=== PATIENT | female | born 2000 | race Caucasian/White ===

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

== ENCOUNTER 2021-04-10 14:01 | Emergency (ER) | payer OTHER, SELFPAY ==
--- NOTE | ~2021-04-10 | XR_ITS ---
EXAMINATION: XR abdomen/kub 1V EXAM DATE: 04/10/2021 14:44 INDICATION: Left-sided low abdominal pain, diarrhea. TECHNIQUE: Frontal projection(s) of the abdomen for interpretation. There is no prior study for santos man. Correlation was made with CT abdomen 12/16/2020. FINDINGS: There is expected amount of colonic stool and gas. No small bowel dilation, nonobstructiv e bowel gas pattern. There are no suspicious calcifications identified. Upper abdomen incompletely imaged but patient may have splenomegaly. The bones are unremarkable. IMPRESSION: Possible splenomegaly. Reviewed, dictated and finalized at location A. N [employer] IMPRESSION: Possible splenomegaly.
--- NOTE | 2021-04-10 14:18 | ED.GENADULT ---
HPI - General Adult General Chief complaint: Upper Respiratory Infection Stated complaint: lower abdominal pain and throat pain Time Seen by Provider: 04/10/21 14:18 Source: patient Mode of arrival: ambulatory Limitations: no limitations History of Present Illness HPI narrative: 21-year-old female presenting for complaint of left lower quadrant abdominal pain for 4 days. Endorses constipation, passing flatus. Denies nausea, vomiting, diarrhea, fever or chills. She also endorses 1 day history of throbbing in her throat. Denies difficulty or pain with swallowing, decreased appetite, early satiety, referred pain to shoulder/chest, hematochezia or melena. LBM today after taking stool softener. Endorses recent Hx covid and mono 12/2020. States she was scheduled for CT abdomen last week and labs for further evaluation, but appt was canceled. Related Data Home Medications Medication Instructions Recorded Confirmed No Home Medications 04/10/21 04/10/21 Allergies Allergy/AdvReac Type Severity Reaction Status Date / Time No Known Allergies Allergy Verified 04/10/21 14:12 Review of Systems Review of Systems: CONSTITUTIONAL: Denies body aches, fever, chills, or sweats. EYES: Denies visual changes, redness, or discharge. ENT: Denies rhinorrhea, congestion, or otalgia. CARDIOVASCULAR: Denies chest pain, palpitations, or edema. RESPIRATORY: Denies cough or dyspnea. GASTROINTESTINAL: Endorses abdominal pain Denies nausea, vomiting, diarrhea, hematochezia, melena, hematemesis GENITOURINARY: Denies dysuria or hematuria. SKIN: Denies rash, itching, or wounds. MUSCULOSKELETAL: Denies back pain, joint pain, or myalgia. NEUROLOGIC: Denies headache, numbness, tingling, or weakness. PSYCH: Denies depression or anxiety. All systems reviewed & are unremarkable except as noted in HPI and below PMFSH Surgical History Surgical History S/P tonsillectomy [place] teeth removed Family History Family History Father Hypertension Patient's father is in good health Cerebrovascular accident Mother Patient's mother is in good health Asthma Sibling Patient's sister is in good health Anxiety Depression Grandparent Heart problem Cerebrovascular accident Social History Social History Smoking status: Never smoker Second hand tobacco smoke exposure: No Alcohol intake: never Comments At time of signature, I have reviewed and agree with nursing past medical, surgical, social and family history unless otherwise noted. Please see nursing chart for further information. There is no relevant family history pertinent to the presenting complaint Exam Narrative: GENERAL: Well-appearing, well-nourished, and in no acute distress. HEAD: Normocephalic, atraumatic. EYES: EOMI. No redness or drainage. Conjunctivae normal. ENT: Mucous membranes pink and moist. No rhinorrhea. TMs normal bilaterally. Throat normal. Uvula midline. NECK: Normal AROM. Supple. No lymphadenopathy. CHEST: No respiratory distress. Clear to auscultation. HEART: Regular rate and rhythm. No murmur appreciated. Normal peripheral pulses. ABDOMEN: Tender abdomen: LLQ and LUQ; No guarding, rebound tenderness, or asymmetry; abd soft, nondistended, normal active bowel sounds. MUSCULOSKELETAL: No bony tenderness. EXTREMITIES: Normal range of motion. No edema. SKIN: Warm, dry, no rash. Capillary refill normal. Normal skin turgor. NEURO: No focal deficits. Alert and oriented x3. Gait steady. PSYCH: Normal affect. No signs of depression or anxiety. Course Course Emergency Course: strep and flu neg KUB reviewed with pt We discussed at length the need to fu with PCP and have the CT abd/pelvis as originally scheduled; advised to go to ER for worsening sx. v/u. Patient is aware of diagnosis, unders
[2021-04-10 14:26] VITALS: BP 136/82; PULSE 88; RESP 16; TEMP 37.3; O2SAT 100
== END 2021-04-10 15:09 | disposition home or self-care (01) ==
PROVIDERS: Emergency Provider Nurse Practitioner Family; PCP Internal Medicine
DX: R10.32 Left lower quadrant pain (principal)
CPT/HCPCS: 74018; 81003; 87081; 87086; 87804; 87880; 99213; G0463

== ENCOUNTER 2021-04-12 20:43 | Emergency (ER) | payer OTHER, SELFPAY ==
--- NOTE | ~2021-04-12 | CT_ITS ---
EXAMINATION: CT abdomen pelvis w con DATE: 04/12/2021 22:55 INDICATION: Right lower quadrant abdominal pain. Nausea. TECHNIQUE: Computed tomography (CT) of the abdomen and pelvis was performed with 100 mL Omnipaque 350 intravenous contrast. Automated exposure control and iterative reconstruction technique were employe d. The dose-length product was 330.89 mGy-cm. COMPARISON: CT abdomen and pelvis 12/16/2020 FINDINGS: The visualized portions of lung bases are clear without pneumonia or pleural effusion. The heart size is normal. No pericardial effusion. There is mild splenomegaly. The liver, gallbladder, pa ncreas, adrenal glands, and kidneys are normal. Stool distends the rectum. The appendix is normal. Th ere are no pathologically enlarged lymph nodes. There is no free intraperitoneal fluid. The bones are unremarkable. IMPRESSION: 1. Stool distends the rectum. 2. Mild splenomegaly. Reviewed, dictated and finalized at location A. [employer]
[2021-04-12 20:46] VITALS: BP 144/72; PULSE 88; RESP 17; TEMP 36.7; O2SAT 100
--- NOTE | 2021-04-12 22:17 | ED.ABDPAIN ---
HPI - Abdominal Pain General Chief Complaint: Abdominal Pain Stated Complaint: abdominal pain Time Seen by Provider: 04/12/21 21:58 Source: patient and family Mode of arrival: ambulatory Limitations: no limitations History of Present Illness HPI narrative: 21 years old white female presents with lower abdominal pain started 5 to 6 days ago, mainly on the right side. Associated with nausea. Patient denies aggravating or relieving factors. Patient is fully vaccinated for COVID-19, last menstrual cycle 1 week ago, patient denies any fever, chills, vomiting, radiation of pain or urinary symptoms. Patient also denies any vaginal bleeding or discharge. Related Data Home Medications Medication Instructions Recorded Confirmed etonogestrel [Nexplanon] SUBDERMAL 04/12/21 Allergies Allergy/AdvReac Type Severity Reaction Status Date / Time No Known Allergies Allergy Verified 04/12/21 22:33 Review of Systems Review of Systems: CONSTITUTIONAL: Denies fever, chills, or sweats. EYES: Denies visual changes, redness, or discharge. ENT: Denies rhinorrhea, congestion, sore throat, or otalgia. CARDIOVASCULAR: Denies chest pain, palpitations, or edema. RESPIRATORY: Denies cough or dyspnea. GASTROINTESTINAL: Denies abdominal pain, nausea, vomiting, or diarrhea. GENITOURINARY: Denies dysuria or hematuria. SKIN: Denies rash or itching. MUSCULOSKELETAL: Denies back pain, joint pain, or myalgia. NEUROLOGIC: Denies headache, numbness, or weakness. PSYCHIATRIC: Denies anxiety or depression. PMFSH Surgical History Surgical History S/P tonsillectomy [place] teeth removed Family History Family History Father Hypertension Patient's father is in good health Cerebrovascular accident Mother Patient's mother is in good health Asthma Sibling Patient's sister is in good health Anxiety Depression Grandparent Heart problem Cerebrovascular accident Social History Social History Smoking status: Never smoker Second hand tobacco smoke exposure: No Alcohol intake: never Exam Narrative: General appearance: Well-developed, well-nourished Skin: Normal color Head: Normocephalic, nontraumatic Eyes: Clear conjunctiva ENT: Oropharynx normal, ears normal, nose normal Neck: Supple, nontender Chest and respiratory: Airway patent, no respiratory distress, no accessory muscle use Heart: Regular rate/rhythm Abdomen: Soft, mild to moderate tenderness right lower quadrant, no guarding or rebound, no organomegaly, quiet bowel sounds Vascular: Normal peripheral pulses, normal capillary refill. 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 Differential diagnosis as below Differential Diagnosis Differential diagnosis: Likely acute appendicitis, calculus of kidney, constipation, diverticulitis and other (Urinary tract infect
[2021-04-12 22:27] LABS: Basophils Absolute Auto 0.1 K/mm3 (0.0-0.1); Basophils Percent Auto 0.8 % (0.2-1.2); Eosinophils Absolute Auto 0.1 K/mm3 (0-0.3); Eosinophils Percent Auto 1.7 % (0-4.4); Hematocrit 38.3 % (37.0-47.0); Hemoglobin 12.7 g/dL (12.0-15.0); Immature Granulocyte Absolute 0.01 K/mm3 (0.00-0.031); Immature Granulocyte Percent A 0.2 % (0-0.5); Lymphocytes Absolute Auto 2.45 K/mm3 (0.9-3.2); Lymphocytes Percent Auto 41.5 % (18.3-44.2); Mean Corpuscular HGB Conc 33.2 g/dl (32-36); Mean Corpuscular Hemoglobin 30.2 pg (26-34); Mean Corpuscular Volume 91.2 fl (80-100); Mean Platelet Volume 10.1 fl (7.4-10.4); Monocytes Absolute Auto 0.5 K/mm3 (0.1-0.6); Monocytes Percent Auto 8.3 % (2.6-8.5); Neutrophils Absolute Auto 2.8 K/mm3 (1.3-6.7); Neutrophils Percent Auto 47.5 % (45.5-73.1); Platelet Count Result 194 k/mm3 (150-375); Red Cell Distribution Width 13.5 % (11.5-14.5); White Blood Count 5.9 K/mm3 (4.5-10.0)
[2021-04-12 22:34] LABS: Add Urine Microscopic? YES; Amorphous Sediment Urine Few; Appearance Urine Turbid (Clear); Bacteria Urine 1+ /hpf; Bilirubin Urine Negative (Negative); Blood Urine Negative (Negative); Color Urine Yellow (Yellow); Glucose Urine UA Negative (Negative); Ketones Urine Negative (Negative); Leukocyte Esterase Ur Negative LEU/UL (Negative); Nitrate Urine Negative (Negative); Protein Urine 1+ mg/dL (Negative); Squamous Epithelial Cell Urine Moderate /hpf (Few); Urobilinogen Urine Negative mg/dL (<2.0); WBC Clumps Urine Present /HPF; WBC Urine 0-3 /hpf
[2021-04-12 22:36] LABS: Alanine Aminotransferase 13 U/L (4-35); Albumin Level 4.2 g/dL (3.5-5.1); Alkaline Phosphatase 65 U/L (38-126); Anion Gap 2 mmol/L (8-16); Aspartate Amino Transferase 23 U/L (14-36); Bilirubin,Total 0.4 mg/dL (0.2-1.3); Blood Urea Nitrogen 18 mg/dL (7-17); Carbon Dioxide 26 mmol/L (22-30); Chloride 108 mmol/L (98-107); Estimated CRCL calculation 103 ml/min; Estimated Glomerular Filt Rate > 60; Glucose 97 mg/dL (65-110); Lipase 73 U/L (23-300); Potassium 4.4 mmol/L (3.4-5.0); Sodium 136 mmol/L (137-145); Specific Grav Ur 1.034 (1.001-1.035)
[2021-04-12] MEDS: MORPHINE SULFATE (*CRX) 4 MG/ML INJ IV PUSH (22:40)
[2021-04-12] MEDS: SODIUM CHLORIDE 0.9% IV 1,000 ML 999 ML IV CONT (22:40)
[2021-04-12] MEDS: ONDANSETRON INJ 4 MG/2 ML VIAL IV PUSH (22:40)
[2021-04-13 00:14] VITALS: PULSE 81; RESP 20; O2SAT 97
[2021-04-13 01:00] VITALS: BP 121/73; PULSE 80; RESP 16; O2SAT 99
== END 2021-04-13 01:00 | disposition home or self-care (01) ==
PROVIDERS: Emergency Medicine; Emergency Provider Emergency Medicine; PCP Internal Medicine
DX: N39.0 Urinary tract infection, site not specified (principal)
CPT/HCPCS: 36415; 74177; 80053; 81001; 81025; 83690; 85025; 96361; 96374; 96375; 99284; J2270; J2405; J7030; Q9967

== ENCOUNTER 2022-01-14 11:27 | Emergency (ER) | payer OTHER, SELFPAY ==
[2022-01-14 11:42] VITALS: BP 124/89; PULSE 83; RESP 16; TEMP 37.3; O2SAT 100
--- NOTE | 2022-01-14 12:22 | ED.URI ---
HPI - URI/Sore Throat General Chief Complaint: Upper Respiratory Infection Stated Complaint: cough, abdominal pain, ear pressure, congestion Time Seen by Provider: 01/14/22 12:14 Source: patient Mode of arrival: ambulatory Limitations: no limitations History of Present Illness HPI Narrative: patient presents today complaining of a 4 day history of cough, ear pain, congestion, postnasal drip. Denies sore throat or fever. She has been taking Zyrtec and Mucinex with some relief. Denies any known sick contacts. She has not received a flu vaccine this season. Related Data Home Medications Medication Instructions Recorded Confirmed etonogestrel 68 mg subdermal subdermal 04/12/21 04/21/21 implant (Nexplanon) spironolactone 100 mg tablet mg 01/14/22 Allergies Allergy/AdvReac Type Severity Reaction Status Date / Time No Known Allergies Allergy Verified 01/14/22 11:41 Review of Systems Review of Systems: CONSTITUTIONAL: Denies body aches, fever, chills, or sweats. EYES: Denies visual changes, redness, or discharge. ENT: Denies rhinorrhea, sore throat. + Ear pain, congestion, postnasal drip CARDIOVASCULAR: Denies chest pain, palpitations, or edema. RESPIRATORY: Denies dyspnea.+ cough GASTROINTESTINAL: Denies abdominal pain, nausea, vomiting, or diarrhea. GENITOURINARY: Denies dysuria or hematuria. SKIN: Denies rash, itching, or wounds. MUSCULOSKELETAL: Denies back pain, joint pain, or myalgia. NEUROLOGIC: Denies headache, numbness, tingling, or weakness. PSYCH: Denies depression or anxiety. [facility] Surgical History Surgical History S/P tonsillectomy [place] teeth removed Family History Family History Father Hypertension Patient's father is in good health Cerebrovascular accident Mother Patient's mother is in good health Asthma Sibling Patient's sister is in good health Anxiety Depression Grandparent Heart problem Cerebrovascular accident Social History Social History Smoking status: Never smoker Second hand tobacco smoke exposure: No Alcohol intake: never Comments At time of signature, I have reviewed and agree with nursing past medical, surgical, social and family history unless otherwise noted. Please see nursing chart for further information. There is no relevant family history pertinent to the presenting complaint Exam Narrative: GENERAL: mildly ill-appearing, well-nourished, and in no acute distress. HEAD: Normocephalic, atraumatic. EYES: EOMI. No redness or drainage. Conjunctivae normal. ENT: Mucous membranes pink and moist. Nares congested.. No rhinorrhea. TMs normal bilaterally. Throat Mildly erythematous without edema or exudate. Uvula midline. NECK: Normal AROM. Supple. No lymphadenopathy. CHEST: No respiratory distress. Clear to auscultation. HEART: Regular rate and rhythm. No murmur appreciated. Normal peripheral pulses. EXTREMITIES: Normal range of motion. No edema. SKIN: Warm, dry, no rash. Capillary refill normal. Normal skin turgor. NEURO: No focal deficits. Alert and oriented x3. Gait steady. PSYCH: Normal affect. No signs of depression or anxiety. Course Course Level of Care: Express Care Visit Vital Signs Vital signs: Vital Signs Temperature 99.1 F 01/14/22 11:42 Pulse Rate 83 01/14/22 11:42 Respiratory Rate 16 01/14/22 11:42 Blood Pressure 124/89 01/14/22 11:42 Pulse Oximetry 100 01/14/22 11:42 Temperature 99.1 F 01/14/22 11:42 Pulse Rate 83 01/14/22 11:42 Respiratory Rate 16 01/14/22 11:42 Blood Pressure 124/89 01/14/22 11:42 Pulse Oximetry 100 01/14/22 11:42 Reviewed. Pt has been instructed to follow up with her PCP regarding her elevated blood pressure today. MDM - URI/Sore Throat Differential Diagnosis Diff
== END 2022-01-14 12:33 | disposition home or self-care (01) ==
PROVIDERS: Emergency Provider Nurse Practitioner; PCP Internal Medicine
DX: J10.1 Influenza due to other identified influenza virus with other respiratory manifestations (principal); Z20.822 Contact with and (suspected) exposure to COVID-19; Z86.16 Personal history of COVID-19
CPT/HCPCS: 87426; 87804; 99213; C9803; G0463

== ENCOUNTER 2023-06-06 08:16 | Emergency (ER) | payer OTHER, SELFPAY ==
[2023-06-06 08:21] VITALS: BP 113/69; PULSE 77; RESP 16; TEMP 36.9; O2SAT 99
--- NOTE | 2023-06-06 08:38 | ED.GENADULT ---
HPI - General Adult General Chief complaint: Upper Respiratory Infection Stated complaint: Sore Throat/Headache Source: patient, RN notes reviewed and old records reviewed Mode of arrival: ambulatory Limitations: no limitations History of Present Illness HPI narrative: 23-year-old female presents to [facility] with complaint of sore throat that started yesterday. Patient states hurts to swallow. Patient also states today has sinus congestion. Patient denies cough for fever. Related Data Home Medications Medication Instructions Recorded Confirmed etonogestrel 68 mg subdermal 1 implant subdermal USEASDIRECTD 04/12/21 06/06/23 implant (Nexplanon) tretinoin 0.05 % topical cream 1 applic topical DAILY 06/06/23 06/06/23 Allergies Allergy/AdvReac Type Severity Reaction Status Date / Time No Known Allergies Allergy Verified 06/06/23 08:22 Review of Systems Constitutional: Constitutional: Reports no additional constitutional complaints, Denies body ache(s), Denies chills, Denies fatigue, Denies fever(s) and Denies headache(s) Eyes: Eyes: Reports no additional eye complaints and Denies blurry vision ENT: Reports system reviewed and no additional complaints, except as documented, Denies vertigo, Denies dizziness, Denies ear discharge, Denies otalgia, Denies facial pain, Denies headache(s), Reports nasal congestion, Denies nasal discharge, Reports odynophagia, Denies sinus pain, Denies sinus pressure and Reports sore throat Cardiovascular: Cardiovascular: Reports no additional cardiovascular complaints, Denies chest pain, Denies chest pain at rest, Denies rapid heart rate and Denies dyspnea Respiratory: Respiratory: Reports no additional respiratory complaints, Denies chest congestion, Denies cough, Denies pain on inspiration, Denies pain with cough and Denies dyspnea Gastrointestinal: Gastrointestinal: Denies abdominal pain, Denies diarrhea, Denies nausea and Denies vomiting Integumentary/Breasts: Skin/Breast: Denies rash Neurologic: Reports system reviewed and no additional complaints, except as documented, Denies vertigo, Denies dizziness and Denies headache(s) Endocrine: Endocrine: Denies fatigue PMFSH Surgical History Surgical History S/P tonsillectomy [place] teeth removed Family History Family History Father Hypertension Patient's father is in good health Cerebrovascular accident Mother Patient's mother is in good health Asthma Sibling Patient's sister is in good health Anxiety Depression Grandparent Heart problem Cerebrovascular accident Social History Social History Smoking status: Never smoker Second hand tobacco smoke exposure: No Alcohol intake: never Do You Feel Safe in your Home?: Yes Lack of Transportation: No Lack of Food: Never True Current Housing: I Have Housing Concerned About Future Housing: No Difficulty Paying Gas/Electric Bills: No Difficulty Paying for Meds: No Currently Unemployed: No Education: High School Diploma/GED Difficulty w/ Childcare or Family Care: No Comments At the time of my signature, I reviewed and agree with the nursing past medical, surgical, social, and family history. There is no relevant family history pertinent to the patient complaint. Exam Const: General: cooperative, healthy appearing, no acute distress and well nourished Nutritional Appearance: well nourished Orientation/consciousness: patient oriented x3 Limitations: no limitations HENMT: Head: normal to inspection and normocephalic Ears: external ears normal, TM's normal bilaterally, EAC's normal and mastoids normal Face/Nose/Sinus: Normal nasal mucous membranes and turbinates present and normal facial exam Face and sinus: normal facial exam Mouth: Yes Normal oral and palatal mucosa present, Ye
== END 2023-06-06 08:59 | disposition home or self-care (01) ==
PROVIDERS: Emergency Provider Registered Nurse; PCP Clinical Nurse Specialist
DX: J02.9 Acute pharyngitis, unspecified (principal); Z20.822 Contact with and (suspected) exposure to COVID-19
CPT/HCPCS: 87081; 87426; 87804; 87880; 99213; G0463

== ENCOUNTER 2023-07-25 14:04 | Outpatient (CLI) | payer OTHER, SELFPAY ==
[2023-07-25 14:42] LABS: D Dimer 0.83 ug/mL (<0.48)
[2023-07-25 15:00] LABS: Erythrocyte Sedimentation Rate 10 mm/hr (0-20)
== END 2023-07-25 14:05 | disposition home or self-care (01) ==
LOC: ANHLAB 14:06
PROVIDERS: PCP Clinical Nurse Specialist; Visit Provider Internal Medicine
DX: F41.9 Anxiety disorder, unspecified (principal); R07.89 Other chest pain
CPT/HCPCS: 36415; 84443; 85380; 85652

== ENCOUNTER 2023-07-25 16:13 | Outpatient (CLI) | payer OTHER, SELFPAY ==
--- NOTE | ~2023-07-25 | CT_ITS ---
EXAMINATION: CTA chest PE protocol DATE: 07/25/2023 17:03 INDICATION: POS D dimer and chest discomfort TECHNIQUE: Computed tomography angiography (CTA) of the chest was performed with 100 mL Omnipaque-350 intravenous contrast timed to evaluate the pulmonary arteries. Coronal maximum intensity projection 3D-reconstructions were created by the technologist. The dose-length product (DLP) was 191.29 mGy-cm. Automated exposure control and iterative reconstruction technique were employed. COMPARISON: X-ray chest 12/16/2020, report only. FINDINGS: Lung parenchyma and airways: Clear. Pleura: Unremarkable. Thoracic inlet, axillae and chest wall: Unremarkable. Thoracic aorta: No significant dilation. No dissection. Mediastinum: Normal. Heart and pericardium: Normal. Coronary artery calcifications: Absent. Upper abdomen: No significant finding. Bones: No acute osseous finding. Pulmonary arteries: Study quality: Adequate. No pulmonary emboli detected. IMPRESSION: No CT evidence of acute pulmonary embolus. No acute process detected in the chest. Reviewed, dictated and finalized at location K.
[2023-07-25 16:52] LABS: Estimated Glomerular Filt Rate > 60
== END 2023-07-25 16:14 | disposition home or self-care (01) ==
LOC: ANHIMG 16:14
PROVIDERS: PCP Clinical Nurse Specialist; Visit Provider Internal Medicine
DX: R07.89 Other chest pain (principal); R79.89 Other specified abnormal findings of blood chemistry
CPT/HCPCS: 71275; Q9967

== ENCOUNTER 2024-06-30 15:35 | Emergency (ER) | payer OTHER, SELFPAY ==
--- NOTE | ~2024-06-30 | XR_ITS ---
XR foot RT min 3V Ordering provider: PETER Crane History: . pain xyest after exercise. Prox lateral . Comparison: None. FINDINGS: BONES: No acute fracture or dislocation. JOINT SPACES: Normal. No tarsal coalition. SOFT TISSUES: Normal. IMPRESSION: No acute osseous abnormality of the right foot. Reviewed, dictated and finalized at location A.
[2024-06-30 15:45] VITALS: BP 150/89; PULSE 95; RESP 16; TEMP 36.8; O2SAT 100
--- NOTE | 2024-06-30 16:28 | ED_ITS ---
HPI - Extremity Injury (Lower) General Chief Complaint: Extremity Injury, Lower Stated Complaint: R FOOT PAIN Time Seen by Provider: 06/30/24 15:48 Source: patient and RN notes reviewed Mode of arrival: ambulatory Limitations: no limitations History of Present Illness HPI Narrative: Patient presents today complaining of pain to her right lateral foot since yesterday after walking 2.5 miles [address] a walking trail. States she was not walking over any rough terrain. She is active, so walking this distance is not new for her. She did notice some popping in her foot with walking. Denies numbness or tingling of her toes. Pain significantly increases with weight- bearing. At rest she describes the pain as a dull ache, but increases to 7/10 with weight-bearing. She has tried no interventions prior to arrival. Related Data Home Medications ?Medication ?Instructions ?Recorded ?Confirmed ?Last Taken ?Type etonogestrel 68 mg subdermal 1 implant subdermal USEASDIRECTD 04/12/21 06/30/24 Unknown History implant (Nexplanon) tretinoin 0.05 % topical cream 1 applic topical DAILY 06/06/23 06/30/24 Unknown History minocycline 4 % topical foam 1 applic topical DAILY 07/25/23 06/30/24 Unknown History (Amzeeq) Allergies Allergy/AdvReac Type Severity Reaction Status Date / Time No Known Allergies Allergy Verified 06/30/24 15:45 Review of Systems Review of Systems: CONSTITUTIONAL: Denies body aches, fever, chills, or sweats. EYES: Denies visual changes, redness, or discharge. ENT: Denies rhinorrhea, congestion, sore throat, or otalgia. CARDIOVASCULAR: Denies chest pain, palpitations, or edema. RESPIRATORY: Denies cough or dyspnea. GASTROINTESTINAL: Denies abdominal pain, nausea, vomiting, or diarrhea. GENITOURINARY: Denies dysuria or hematuria. SKIN: Denies rash, itching, or wounds. MUSCULOSKELETAL: + right foot pain. NEUROLOGIC: Denies headache, numbness, tingling, or weakness. PSYCH: Denies depression or anxiety. ON LICENSE OF [facility] Surgical History Surgical History [place] teeth removed S/P tonsillectomy Family History Family History Father Hypertension Patient's father is in good health Cerebrovascular accident Mother Patient's mother is in good health Asthma Sibling Patient's sister is in good health Anxiety Depression Grandparent Heart problem Cerebrovascular accident Social History Social History Smoking status: Never smoker Second hand tobacco smoke exposure: No Alcohol intake: never Do You Feel Safe in your Home?: Yes Lack of Transportation: No Lack of Food: Never True Current Housing: I Have Housing Concerned About Future Housing: No Difficulty Paying Gas/Electric Bills: No Difficulty Paying for Meds: No Currently Unemployed: No Education: High School Diploma/GED Difficulty w/ Childcare or Family Care: No Comments At time of signature, I have reviewed and agree with nursing past medical, surgical, social and family history unless otherwise noted. Please see nursing chart for further information. There is no relevant family history pertinent to the presenting complaint Exam Narrative: GENERAL: Well-appearing, well-nourished, and in no acute distress. HEAD: Normocephalic, atraumatic. EYES: EOMI. No redness or drainage. Conjunctivae normal. ENT: Mucous membranes pink and moist. NECK: Normal AROM. CHEST: No respiratory distress. EXTREMITIES: Right foot: Tenderness to palpation of the proximolateral foot, overlying the proximal 4th and 5th metatarsal and cuboid. No edema, ecchymosis. Distal sensation intact. Capillary refill normal. Pedal pulse normal. Full r mumtaz of motion of all toes and ankle without increased pain. SKIN: Warm, dry, no rash. Capillary refill normal. Normal skin turgor. NEURO: No focal deficits. Alert and oriented x3. Gait steady. PSYCH: Normal affect. No signs of depression or anxiety. Course Course Level of Care: Express Care Visit Vital Signs Vital signs: Vital Signs Temperature 98.2 F 06/30/24 15:45 Pulse Rate 95 06/30/24 15:45 Respiratory Rate 16 06/30/24 15:45 Blood Pressure 150/89 H 06/30/24 15:45 Pulse Oximetry 100 06/30/24 15:45 Temperature 98.2 F 06/30/24 15:45 Pulse Rate 95 06/30/24 15:45 Respiratory Rate 16 06/30/24 15:45 Blood Pressure 150/89 H 06/30/24 15:45 Pulse Oximetry 100 06/30/24 15:45 Reviewed MDM - Extremity Injury (Lower) MDM Narrative Medical decision making narrative: X-ray is negative. Recommend conservative treatment for foot sprain with orthopedic or podiatric follow-up in 7-10 days if symptoms persist. Patient agrees with plan Differential Diagnosis Differential diagnosis: Likely other (Stress fracture, foot sprain) Imaging Data Radiologist's impression: ITS Impressions Foot X-Ray 06/30/24 16:19 IMPRESSION: No acute osseous abnormality of the right foot. Critical Care Time Critical Care Time Critical Care Time: No Discharge Plan Discharge Clinical Impression: Right foot sprain Qualifiers: Encounter type: initial encounter Qualified Code(s): S93.601A - Unspecified sprain of right foot, initial encounter Patient Disposition: Home Condition: Stable Instructions: Foot Sprain (ED) Additional Instructions: Your x-ray is negative today. Elevate and ice the foot. Take [id number] medications such as Tylenol or ibuprofen for your discomfort. Follow-up with Orthopedics or Podiatry in 7-10 days if symptoms are not improving. Your blood pressure was elevated above 120/80 today at Urgent Care. This puts you above the threshold for follow up. Please schedule a followup visit with your personal physician as soon as possible, for further evaluation and treatment. Even blood pressure exceeding 120/80 may indicate pre-hypertension. Patient Language: Welsh Prescriptions: No Action tretinoin 0.05 % cream 1 applic TOPICAL DAILY Amzeeq 4 % foam 1 applic topical DAILY Nexplanon 68 mg implant 1 implant SUBDERMAL USEASDIRECTD Follow-up/Referrals: Peyton,Margarita Cruz DPM [Non-Staff] - Karen Kahn DPM [Physician] - Lincoln Bauman DO [Primary Care Provider] - Time of Disposition: 16:29
== END 2024-06-30 16:34 | disposition home or self-care (01) ==
PROVIDERS: Emergency Provider Nurse Practitioner; PCP Internal Medicine
DX: S93.601A Unspecified sprain of right foot, initial encounter (principal); X58.XXXA Exposure to other specified factors, initial encounter; Y93.01 Activity, walking, marching and hiking
CPT/HCPCS: 73630; 99213; G0463